=== PATIENT | female | born 1965 | race Caucasian/White ===

== ENCOUNTER → 2017-03-01 | Outpatient (CLI) | payer MEDICARE | LOC: KOH-I 10:44 | DX: G89.29 Other chronic pain (principal); R93.8 Abnormal findings on diagnostic imaging of other specified body structures; M53.3 Sacrococcygeal disorders, not elsewhere classified | CPT/HCPCS: 71020; 72110; 72202 ==

== ENCOUNTER → 2022-03-24 | Outpatient (CLI) | payer OTHER | LOC: KOH-I 11:06 | DX: M54.50 Low back pain, unspecified (principal); M47.814 Spondylosis without myelopathy or radiculopathy, thoracic region | CPT/HCPCS: 72070; 72100 ==